=== PATIENT | female | born 1960 | race Caucasian/White ===

== ENCOUNTER → 2016-08-26 | Day surgery (SDC) | payer OTHER ==
[~2016-08-26] VITALS: Ht 157.5 cm; Wt 47.2 kg
[~2016-08-26] MED LIST: AMBIEN5 MG PO; DEPAKOTE500 MG PO; DILANTIN 100 M100 MG PO; HYDROCHLOROTH12.5 M1 PO; LIDOCAINE GEL TP; LORCET PLUS 7.1 EACH PO; NORCO 7.5-3251 EACH PO; OMEPRAZOLE20 MG PO; PREMARIN1.25 MG PO; SIMVASTATIN20 MG PO; VITAMIN B-1000 MCG/M IM
[2016-08-26 07:01] LABS: BUN/CREATININE RATIO 22 (0-10)
[2016-08-26 07:04] LABS: HEMOGLOBIN 14.6 gm/dl (12.3-15.3); RED BLOOD COUNT 4.42 M/UL (4.00-5.10); WHITE BLOOD COUNT 6.3 K/UL (4.5-11.0)
== END | disposition home or self-care (01) ==
LOC: OR 06:11
PROVIDERS: Orthopaedic Surgery
PROC: 0PU43JZ Supplement Thoracic Vertebra with Synthetic Substitute, Percutaneous Approach (ICD-10-PCS; 2016-08-26)
PROC: 0PB43ZX Excision of Thoracic Vertebra, Percutaneous Approach, Diagnostic (ICD-10-PCS; 2016-08-26)
PROC: 0PS43ZZ Reposition Thoracic Vertebra, Percutaneous Approach (ICD-10-PCS; principal; 2016-08-26 07:45)
DX: S22.079A Unspecified fracture of T9-T10 vertebra, initial encounter for closed fracture (principal); M81.0 Age-related osteoporosis without current pathological fracture; G40.909 Epilepsy, unspecified, not intractable, without status epilepticus; K21.9 Gastro-esophageal reflux disease without esophagitis; F17.210 Nicotine dependence, cigarettes, uncomplicated; Z79.899 Other long term (current) drug therapy; Z98.890 Other specified postprocedural states; W19.XXXA Unspecified fall, initial encounter; Z91.81 History of falling
CPT/HCPCS: 20240; 71010; 80048; 85027; C1713; J0690; J1200; J2250; J2405; J2710; J3010; J7120; Q9962